=== PATIENT | female | born 1980 | race Caucasian/White ===

== ENCOUNTER 2017-01-25 12:09 | Emergency (ER) | payer OTHER ==
[2017-01-25 12:18] VITALS: BP 115/64; PULSE 74; TEMP 99.1; BMI 26.8
[2017-01-25] MEDS ORDERED: ERYTHROMYCIN 0.5% OPHTHALMIC OINTMENT 3.5 GM TUBE ONE (13:16)
--- NOTE | 2017-01-25 13:17 | PDOC ---
History of Present Illness - General Chief Complaint: Eye Problem Stated Complaint: EYE PAIN Time Seen by Provider: 01/25/17 12:51 History Source: Patient Exam Limitations: No Limitations - History of Present Illness Initial Comments: 01/25/17 13:11 Vision here with complaints of left eye swelling, conjunctival swelling, and drainage thick yellow-green this morning. States felt had a stye yesterday, used hot compresses and brought to ahead and drained. But woke up this morning with swollen upper and lower lids with tenderness and drainage states uses contacts and wonders if has conjunctivitis. Visual acuity is within normal limits, no fever, no other problems. Timing/Duration: unsure, 24 hours Associated Symptoms: denies: denies symptoms, fever/chills Past History - Travel Traveled outside of the country in the last 30 days: No Close contact w/someone who was outside of country & ill: No - Past Medical History Allergies/Adverse Reactions: Allergies Allergy/AdvReac Type Severity Reaction Status Date / Time No Known Allergies Allergy Verified 01/25/17 12:18 Home Medications: Ambulatory Orders Erythromycin 0.5% Eye Ointment [Erythromycin 0.5% Eye Ointment -] 1 applic OS [id number] #1 tube 01/25/17 Other medical history: NONE - Psycho/Social/Smoking Cessation Hx Anxiety: No Suicidal Ideation: No Smoking History: Current every day smoker Number of Cigarettes Smoked Daily: 10 Information on smoking cessation initiated: No Hx Alcohol Use: No Drug/Substance Use Hx: No Substance Use Type: None *Physical Exam - Vital Signs Last Vital Signs Temp Pulse Resp BP Pulse Ox 99.1 F 74 18 115/64 98 01/25/17 12:15 01/25/17 12:15 01/25/17 12:15 01/25/17 12:15 01/25/17 12:15 - Physical Exam General Appearance: Yes: Nourished, Appropriately Dressed, Apparent Distress, Mild Distress HEENT: positive: DELANEY, TMs Normal, Pharynx Normal, Other (conjuctival edema/ chemosis to left eye, with mild injection to conjunctiva. Has some yellowish drainage in the inner canthus. No obvious stye or swelling noted to the left upper lateral lid where patient states lesion was. Visual acuity WNL). negative : Normal ENT Inspection, Nasal Congestion, Rhinorrhea, Sinus Tenderness Neck: positive: Supple. negative: Tender, Lymphadenopathy (R), Lymphadenopathy (L) Respiratory/Chest: positive: Lungs Clear, Normal Breath Sounds Extremity: positive: Normal Capillary Refill *DC/Admit/Observation/Transfer Diagnosis at time of Disposition: Conjunctivitis Qualifiers: Conjunctivitis type: acute Acute conjunctivitis type: bacterial Laterality: unspecified laterality Qualified Code(s): H10.30 - Unspecified acute conjunctivitis, unspecified eye - Discharge Dispostion Disposition: HOME Condition at time of disposition: Stable Admit: No - Patient Instructions Printed Discharge Instructions: DI for Conjunctivitis Additional Instructions: Rest, avoid rubbing eyes Wash hands frequently as this is very contagious Wash hands, use eye drops as directed, wash hands after use Do not share eyedrops with other person to may become infected as this will infect them Erythromycin ointment 3 times a day for 5 days Avoid contact with others until redness and discharge is gone from eyes. Followup with ophthalmology or private physician as needed - Post Discharge Activity Work/School Note: Back to Work
== END 2017-01-25 13:40 | disposition home or self-care (01) ==
LOC: JERFT 12:09
DX: H10.32 Unspecified acute conjunctivitis, left eye (principal)
CPT/HCPCS: 99281-25

== ENCOUNTER 2017-11-01 12:03 | Emergency (ER) | payer OTHER ==
[2017-11-01 12:22] VITALS: BP 109/71; PULSE 75; TEMP 98; BMI 26.4
--- NOTE | 2017-11-01 12:49 | PDOC ---
Suture Removal/Wound Check HPI - History of Present Illness Chief Complaint: Suture/Staple Removal(Here) Stated Complaint: SUTURE REMOVAL Time Seen by Provider: 11/01/17 12:35 History Source: Yes: Patient Exam Limitations: Yes: No Limitations Treated at: [facility] ED - Previous ED Treatment Type of procedure performed on last visit: Yes: Laceration Repair Tetanus Immunization: Yes: Up to Date Antibiotics Prescribed: No - Onset of Previous Treatment Timing/Duration/Severity of Onset: reports: This evening Comment:: 11/01/17 12:43 3 weeks ago Past History - Travel Traveled outside of the country in the last 30 days: No Close contact w/someone who was outside of country & ill: No - Past Medical History Allergies/Adverse Reactions: Allergies Allergy/AdvReac Type Severity Reaction Status Date / Time No Known Allergies Allergy Verified 11/01/17 12:22 Home Medications: Ambulatory Orders Erythromycin 0.5% Eye Ointment [Erythromycin 0.5% Eye Ointment -] 1 applic OS [id number] #1 tube 01/25/17 COPD: No - Suicide/Smoking/Psychosocial Hx Smoking History: Current every day smoker Have you smoked in the past 12 months: Yes Number of Cigarettes Smoked Daily: 10 Information on smoking cessation initiated: Yes 'Breaking Loose' booklet given: 11/01/17 Hx Alcohol Use: No Drug/Substance Use Hx: No Substance Use Type: None Suture Removal/Wound Check PE - Physical Exam Laceration/Wound Check Symptoms: reports: None Current Severity Level: None Maximum Severity Level: None *Review of Systems - Review of Systems Able to Perform ROS?: Yes Constitutional: Yes: See HPI. No: Symptoms Reported, Malaise Musculoskeletal: Yes: Symptoms Reported, See HPI, Joint Pain, Joint Swelling All Other Systems: Reviewed and Negative Medical Decision Making - Medical Decision Making 11/01/17 12:47 3 sutures removed from 4,5 web space .well approx under wound, + callous not approx. Recommended emoryboard to file rough edges. *DC/Admit/Observation/Transfer Diagnosis at time of Disposition: Encounter for removal of sutures - Discharge Dispostion Disposition: HOME Condition at time of disposition: Stable Admit: No - Referrals - Patient Instructions Printed Discharge Instructions: DI for Suture Removal - Post Discharge Activity
== END 2017-11-01 12:50 | disposition home or self-care (01) ==
LOC: JERFT 12:03
DX: Z48.02 Encounter for removal of sutures (principal)
CPT/HCPCS: 99281-25

== ENCOUNTER 2020-07-18 14:21 | Emergency (ER) | payer SELFPAY ==
[2020-07-18 14:29] VITALS: BP 127/64; PULSE 77; TEMP 98.2; BMI 24.4
[2020-07-18 16:18] LABS: HEMATOCRIT 33.6 % (32.4-45.2); MCH 30.7 pg (25.7-33.7); MCHC 32.6 g/dl (32.0-36.0); MEAN PLT VOLUME 8.8 fl (7.5-11.1); PLATELET COUNT 353 K/MM3 (134-434); RBC 3.57 M/mm3 (3.60-5.2); RDW 14.1 % (11.6-15.6); WHITE BLOOD COUNT 8.9 K/mm3 (4.0-10.0)
[2020-07-18 16:35] LABS: POTASSIUM 4.3 mmol/L (3.5-5.1)
[2020-07-18 16:36] LABS: CALCIUM 9.3 mg/dL (8.5-10.1)
[2020-07-18 16:37] LABS: BLOOD UREA NITROGEN 6.9 mg/dL (7-18)
[2020-07-18 16:40] LABS: CREATININE 0.6 mg/dL (0.55-1.3)
[2020-07-18 16:58] LABS: EPI CELLS 4 /uL (0-25.1); HYALINE CASTS 0 /uL (0-3.1); URINE APPEARANCE CLEAR; URINE BACTERIA 36 /uL (0-1359); URINE BILIRUBIN NEGATIVE (NEGATIVE); URINE COLOR YELLOW; URINE GLUCOSE (UA) NEGATIVE (NEGATIVE); URINE KETONE NEGATIVE (NEGATIVE); URINE LEUK ESTERASE NEGATIVE (NEGATIVE); URINE NITRITE NEGATIVE (NEGATIVE); URINE PROTEIN NEGATIVE (NEGATIVE); URINE RBC 18 /uL (0-23.9); URINE UROBILINOGEN 0.2 mg/dL (0.2-1.0); URINE WBC 2 /uL (0-25.8)
== END 2020-07-18 18:04 | disposition home or self-care (01) ==
LOC: JER 14:21
DX: N93.9 Abnormal uterine and vaginal bleeding, unspecified (principal)
CPT/HCPCS: 36415; 76830-TC; 80048; 81003; 84703; 85027; 87086; 87491; 87591; 99284-25